=== PATIENT | female | born 1985 | race Caucasian/White ===

== ENCOUNTER 2020-05-05 16:11 | Day surgery (SDC) | payer SELFPAY ==
[2020-05-05] MEDS ORDERED: Sodium Chloride 0.9% 10 ML Syringe FLUSH PRN (16:37)
[2020-05-05] MEDS ORDERED: HYDROmorphone 0.5 MG/0.5 ML Syringe IVPUSH ONE ×2 (16:38→17:52)
[2020-05-05] MEDS ORDERED: Ondansetron 4 MG/2 ML SDV IVPUSH ONE (16:40)
[2020-05-05] MEDS ORDERED: Sodium Chloride 0.9% 1,000 ML IV SCH (16:45)
--- NOTE | 2020-05-05 16:56 | EDM.PDOC ---
ED HPI GENERAL MEDICAL PROBLEM - General Chief Complaint: Abdominal Pain Stated Complaint: UPPER ABDOMINAL PAIN Time Seen by Provider: 05/05/20 16:20 Source of Information: Reports: Patient History Limitations: Reports: No Limitations - History of Present Illness INITIAL COMMENTS - FREE TEXT/NARRATIVE: Patient is a 34-year-old female presents to the emergency department with co mplaints of upper abdominal pain that started early yesterday. She describes it as a crampy, dull ache. She is had no nausea or vomiting. She has tried using [id number] Pepto, Dulcolax, and Beano without relief. She states that initially thought it was just gas, however any of the treatments she has tried is not helping. Last thing she had to eat prior to this was barbecue ribs and cucumbers. She has had an appendectomy in the past but does still have her gallbladder. She has no urinary complaints. Denies any nausea, vomiting, or diarrhea. 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 below) Other Treatments HOUSE DECORATOR: tamar, dulcolax, pepto Upper Abdominal Pain Score (Numeric/FACES): 10 - Related Data Allergies Allergy/AdvReac Type Severity Reaction Status Date / Time No Known Allergies Allergy Verified 05/05/20 16:26 Home Meds: Home Meds oxyCODONE 5 mg PO Q4H PRN #15 tab 05/05/20 [Rx] Past Medical History - Past Health History Medical/Surgical History: Denies Medical/Surgical History - Past Surgical History GI Surgical History: Reports: Appendectomy Social & Family History - Tobacco Use Smoking Status *Q: Current Every Day Smoker Years of Tobacco use: 20 Packs/Tins Daily: 0.5 - Caffeine Use Caffeine Use: Reports: Soda - Recreational Drug Use Recreational Drug Use: No ED ROS GENERAL - Review of Systems Review Of Systems: See Below Constitutional: Reports: Decreased Appetite. Denies: Fever, Chills HEENT: Reports: No Symptoms Respiratory: Reports: No Symptoms Cardiovascular: Reports: No Symptoms Endocrine: Reports: No Symptoms GI/Abdominal: Reports: Abdominal Pain (upper abdomen. Worse in RUQ.). Denies: Nausea, Vomiting : Reports: No Symptoms. Denies: Dysuria, Flank Pain, Frequency Musculoskeletal: Reports: No Symptoms Skin: Reports: No Symptoms Neurological: Reports: No Symptoms Psychiatric: Reports: No Symptoms Hematologic/Lymphatic: Reports: No Symptoms Immunologic: Reports: No Symptoms ED EXAM, GI/ABD - Physical Exam Exam: See Below Exam Limited By: No Limitations General Appearance: Alert, WD/WN, No Apparent Distress Respiratory/Chest: No Respiratory Distress, Lungs Clear, Normal Breath Sounds, No Accessory Muscle Use, Chest Non-Tender Cardiovascular: Normal Peripheral Pulses, Regular Rate, Rhythm, No Edema, No Gallop, No JVD, No Murmur, No Rub GI/Abdominal Exam: Normal Bowel Sounds, Soft, Tender (throughout upper abdomen. Worse in epigastrum and RUQ. Positive [place] sign.). No: Guarding, Rigid, Rebound Neurological: Alert, Oriented, CN II-XII Intact, Normal Cognition, Normal Gait, Normal Reflexes, No Motor/Sensory Deficits Psychiatric: Normal Affect, Normal Mood Skin Exam: Warm, Dry, Intact, Normal Color, No Rash Course - Vital Signs Last Recorded V/S: Last Vital Signs Temp 98.1 F 05/05/20 21:45 Pulse 87 05/05/20 18:16 Resp 18 05/05/20 21:45 BP 106/64 05/05/20 21:45 Pulse Ox 95 05/05/20 21:45 - Orders/Labs/Meds Orders: Active Orders 24 hr Category Date Time Status Admission Status [Patient Status] [ADT] Routine ADT 05/05/20 18:27 Active Communication Order [RC] ROUTINE Care 05/05/20 19:03 Active Cooling Warming Measures [RC] ASDIRECTED Care 05/05/20 19:03 Active Notify Provider [RC] ASDIRECTED Care 05/05/20 19:03 Active Oxygen Therapy [RC] ASDIRECTED Care 05/05/20 19:03 Active Peripheral IV Care [RC] . DIRECTED Care 05/05/20 16:38 Active Pulse Oximetry [RC] ASDIRECTED Care 05/05/20 19:03 Active Ready for Discharge [RC] PER UNIT ROUTINE Care 05/05/20 20:53 Active Vital Signs [RC] Q15M Care 05/05/20 19:03 Active Peripheral IV Insertion Adult [OM.PC] Stat Oth 05/05/20 16:37 Ordered Schedule Procedure [COMM] Stat Oth 05/05/20 18:27 Ordered Labs: Laboratory Tests 05/05/20 05/05/20 05/05/20 Range/Units 16:33 16:33 17:50 WBC 14.73 H (3.98-10.04) K/mm3 RBC 4.92 (3.98-5.22) M/mm3 Hgb 14.4 (11.2-15.7) gm/dl Hct 43.3 (34.1-44.9) % MCV 88.0 (79.4-94.8) fl MCH 29.3 (25.6-32.2) pg MCHC 33.3 (32.2-35.5) g/dl RDW Std Deviation 43.0 (36.4-46.3) fL Plt Count 227 (182-369) K/mm3 MPV 10.7 (9.4-12.3) fl Neut % (Auto) 78.4 H (34.0-71.1) % Lymph % (Auto) 11.1 L (19.3-51.7) % [place] % (Auto) 9.3 (4.7-12.5) % Eos % (Auto) 0.8 (0.7-5.8) Baso % (Auto) 0.2 (0.1-1.2) % Neut # (Auto) 11.55 H (1.56-6.13) K/mm3 Lymph # (Auto) 1.63 (1.18-3.74) K/mm3 [place] # (Auto) 1.37 H (0.24-0.36) K/mm3 Eos # (Auto) 0.12 (0.04-0.36) K/mm3 Baso # (Auto) 0.03 (0.01-0.08) K/mm3 Manual Slide Review Normal smear Sodium 140 (136-145) mEq/L Potassium 3.7 (3.5-5.1) mEq/L Chloride 101 (98-107) mEq/L Carbon Dioxide 27 (21-32) mEq/L Anion Gap 15.7 H (5-15) BUN 13 (7-18) mg/dL Creatinine 0.9 (0.55-1.02) mg/dL Est Cr Clr Drug Dosing 75.34 mL/min Estimated GFR (MDRD) > 60 (>60) mL/min BUN/Creatinine Ratio 14.4 (14-18) Glucose 113 H (74-106) mg/dL Calcium 9.1 (8.5-10.1) mg/dL Total Bilirubin 0.7 (0.2-1.0) mg/dL AST 10 L (15-37) U/L ALT 18 (14-59) U/L Alkaline Phosphatase 94 (46-116) U/L C-Reactive Protein 10.1 H* (<1.0) mg/dL Total Protein 7.5 (6.4-8.2) g/dl Albumin 4.0 (3.4-5.0) g/dl Globulin 3.5 gm/dL Albumin/Globulin Ratio 1.1 (1-2) Lipase 45 L (73-393) U/L Urine Color (Yellow) Urine Appearance (Clear) Urine pH (5.0-8.0) Ur Specific [place] (1.005-1.030) Urine Protein (Negative) Urine Glucose (UA) (Negative) Urine Ketones (Negative) Urine Occult Blood (Negative) Urine Nitrite (Negative) Urine Bilirubin (Negative) Urine Urobilinogen (0.2-1.0) Ur Leukocyte Esterase (Negative) Urine RBC (0-5) /hpf Urine WBC (0-5) /hpf Ur Squamous Epith Cells (0-5) /hpf Urine Bacteria (FEW) /hpf Urine Mucus (FEW) /hpf Urine HCG, Qual Negative (NEGATIVE) COVID-19 ([place]) (NEGATIVE) 05/05/20 05/05/20 Range/Units 17:52 17:55 WBC (3.98-10.04) K/mm3 RBC (3.98-5.22) M/mm3 Hgb (11.2-15.7) gm/dl Hct (34.1-44.9) % MCV (79.4-94.8) fl MCH (25.6-32.2) pg MCHC (32.2-35.5) g/dl RDW Std Deviation (36.4-46.3) fL Plt Count (182-369) K/mm3 MPV (9.4-12.3) fl Neut % (Auto) (34.0-71.1) % Lymph % (Auto) (19.3-51.7) % [place] % (Auto) (4.7-12.5) % Eos % (Auto) (0.7-5.8) Baso % (Auto) (0.1-1.2) % Neut # (Auto) (1.56-6.13) K/mm3 Lymph # (Auto) (1.18-3.74) K/mm3 [place] # (Auto) (0.24-0.36) K/mm3 Eos # (Auto) (0.04-0.36) K/mm3 Baso # (Auto) (0.01-0.08) K/mm3 Manual Slide Review Sodium (136-145) mEq/L Potassium (3.5-5.1) mEq/L Chloride (98-107) mEq/L Carbon Dioxide (21-32) mEq/L Anion Gap (5-15) BUN (7-18) mg/dL Creatinine (0.55-1.02) mg/dL Est Cr Clr Drug Dosing mL/min Estimated GFR (MDRD) (>60) mL/min BUN/Creatinine Ratio (14-18) Glucose (74-106) mg/dL Calcium (8.5-10.1) mg/dL Total Bilirubin (0.2-1.0) mg/dL AST (15-37) U/L ALT (14-59) U/L Alkaline Phosphatase (46-116) U/L C-Reactive Protein (<1.0) mg/dL Total Protein (6.4-8.2) g/dl Albumin (3.4-5.0) g/dl Globulin gm/dL Albumin/Globulin Ratio (1-2) Lipase (73-393) U/L Urine Color Yellow (Yellow) Urine Appearance Slt cloudy H (Clear) Urine pH 6.5 (5.0-8.0) Ur Specific [place] 1.020 (1.005-1.030) Urine Protein Negative (Negative) Urine Glucose (UA) Negative (Negative) Urine Ketones Trace H (Negative) Urine Occult Blood 3+ H (Negative) Urine Nitrite Negative (Negative) Urine Bilirubin Negative (Negative) Urine Urobilinogen 0.2 (0.2-1.0) Ur Leukocyte Esterase Negative (Negative) Urine RBC 5-10 H (0-5) /hpf Urine WBC 0-5 (0-5) /hpf Ur Squamous Epith Cells 10-20 H (0-5) /hpf Urine Bacteria Few (FEW) /hpf Urine Mucus Moderate H (FEW) /hpf Urine HCG, Qual (NEGATIVE) COVID-19 ([place]) Negative (NEGATIVE) Meds: Medications Discontinued Medications Generic Name Dose Route Start Last Admin Trade Name Freq PRN Reason Stop Dose Admin Bupivacaine HCl Confirm 05/05/20 18:31 05/05/20 19:05 Marcaine 0.5% Administered 05/05/20 18:32 20 ml Dose Administration 30 ml .ROUTE .STK-MED ONE Dexamethasone Confirm 05/05/20 18:17 Dexamethasone Administered 05/05/20 18:18 Dose 20 mg .ROUTE .STK-MED ONE Diphenhydramine HCl 25 mg 05/05/20 19:03 Benadryl IVPUSH Q6H PRN pruritis Ephedrine Sulfate 5 mg 05/05/20 19:03 Ephedrine Sulfate IVPUSH ASDIRECTED PRN Hypotension Fentanyl Confirm 05/05/20 18:17 Sublimaze Administered 05/05/20 18:18 Dose 250 mcg .ROUTE .STK-MED ONE Fentanyl 50 mcg 05/05/20 19:03 Sublimaze IVPUSH Q5M PRN Pain Glycopyrrolate Confirm 05/05/20 19:10 Administered 05/05/20 19:11 Dose 1 mg .ROUTE .STK-MED ONE Hydromorphone HCl 0.5 mg 05/05/20 16:38 05/05/20 16:57 Dilaudid IVPUSH 05/05/20 16:39 0.5 mg ONETIME ONE Administration Hydromorphone HCl 0.5 mg 05/05/20 17:52 05/05/20 17:58 Dilaudid IVPUSH 05/05/20 17:53 0.5 mg ONETIME ONE Administration Hydromorphone HCl Confirm 05/05/20 18:17 Dilaudid Administered 05/05/20 18:18 Dose 0.5 mg .ROUTE .STK-MED ONE Hydromorphone HCl 0.5 mg 05/05/20 19:04 05/05/20 21:29 Dilaudid IVPUSH 0.5 mg ONETIME PRN Administration Pain Sodium Chloride 1,000 mls @ 999 mls/hr 05/05/20 16:45 05/05/20 17:01 Normal Saline IV 999 mls/hr ASDIRECTED GABRIELA Administration Piperacillin Sod/Tazobactam 100 mls @ 200 mls/hr 05/05/20 17:46 05/05/20 17:59 Sod 4.5 gm/ Sodium Chloride IV 05/05/20 18:15 200 mls/hr ONETIME ONE Administration Lactated Ringer's 1,000 mls @ 100 mls/hr 05/05/20 18:00 05/05/20 18:03 Ringers, Lactated IV 100 mls/hr ASDIRECTED GABRIELA Administration Lidocaine HCl Confirm 05/05/20 18:17 Xylocaine-Mpf 1% Administered 05/05/20 18:18 Dose 4 mls @ as directed .ROUTE .STK-MED ONE Lactated Ringer's Confirm 05/05/20 18:17 Ringers, Lactated Administered 05/05/20 18:18 Dose 1,000 mls @ as directed .ROUTE .STK-MED ONE Phenylephrine HCl 1 mg/ Sodium 10.1 mls @ 1 mls/sec 05/05/20 19:15 Chloride IV TITRATE COUNT INCLUDES THE [facility] Protocol Ketorolac Tromethamine Confirm 05/05/20 18:17 Toradol Administered 05/05/20 18:18 Dose 30 mg .ROUTE .STK-MED ONE Labetalol HCl Confirm 05/05/20 19:18 Normodyne Administered 05/05/20 19:19 Dose 100 mg .ROUTE .STK-MED ONE Midazolam HCl Confirm 05/05/20 18:17 Versed 1 Mg/Ml Administered 05/05/20 18:18 Dose 2 mg .ROUTE .STK-MED ONE Neostigmine Methylsulfate Confirm 05/05/20 19:10 Neostigmine Methylsulfate Administered 05/05/20 19:11 Dose 5 mg .ROUTE .STK-MED ONE Ondansetron HCl 4 mg 05/05/20 16:40 05/05/20 16:57 Zofran IVPUSH 05/05/20 16:41 4 mg ONETIME ONE Administration Ondansetron HCl Confirm 05/05/20 18:17 Zofran Administered 05/05/20 18:18 Dose 4 mg .ROUTE .STK-MED ONE Propofol Confirm 05/05/20 18:17 Diprivan 20 Ml Administered 05/05/20 18:18 Dose 200 mg .ROUTE .STK-MED ONE Rocuronium [place] Confirm 05/05/20 18:17 Zemuron Administered 05/05/20 18:18 Dose 50 mg .ROUTE .STK-MED ONE Sodium Chloride 10 ml 05/05/20 16:37 05/05/20 16:55 Saline Flush FLUSH 10 ml ASDIRECTED PRN Administration Keep Vein Open - Re-Assessments/Exams Free Text/Narrative Re-Assessment/Exam: 05/05/20 17:53 Hematology was significant for WBC elevated at 14.73, anion gap 15.7, CRP 10.0. Ultrasound of the right upper quadrant shows 2 gallstones. Gallbladder wall is mildly thickened with mild pericholecystic fluid. Findings suggest the possibility of acute cholecystitis. No biliary duct dilatation is seen. Called and spoke with the general surgeon, Dr. Hurd. He had initially plan to admit her for the night with antibiotics and take her gallbladder out tomorrow, however he call back and stated that he will take her to surgery now. I have ordered Zosyn as well as LR at 100 mils per hour. I will also give the patient another dose of Dilaudid 0.5 mg for pain. Discussed this with patient and she is in agreement with this plan. OR crew has been called in. Preprocedure COVID screening has been ordered. Departure - Departure Time of Disposition: 17:53 Disposition: DC/Tfer to [facility] Condition: Good Clinical Impression: Cholecystitis - Discharge Information Sepsis Event Note (ED) - Evaluation Sepsis Screening Result: No Definite Risk - Focused Exam Vital Signs: Vital Signs Temp Pulse Resp BP Pulse Ox 05/05/20 21:45 98.1 F 18 106/64 95 05/05/20 21:32 97.9 F 12 109/63 97 05/05/20 21:15 99.0 F 13 110/64 99 05/05/20 21:02 100.0 F 13 107/61 100 05/05/20 20:54 13 95 05/05/20 20:47 99.3 F 15 112/50 L 95 05/05/20 18:16 98.4 F 87 16 117/76 100 05/05/20 16:22 98.7 F 90 16 134/92 H 98 - My Orders Last 24 Hours: My Active Orders 05/05/20 16:37 Peripheral IV Insertion Adult [OM.PC] Stat 05/05/20 16:38 Peripheral IV Care [RC] . DIRECTED - Assessment/Plan Last 24 Hours: My Active Orders 05/05/20 16:37 Peripheral IV Insertion Adult [OM.PC] Stat 05/05/20 16:38 Peripheral IV Care [RC] . DIRECTED
--- NOTE | 2020-05-05 17:23 | US ---
Limited abdominal ultrasound: Multiple real-time images were obtained of the upper right abdomen. Comparison: No prior abdominal imaging is available. Findings: Liver shows no focal abnormality. Gallbladder shows 2 gallstones. One gallstone measures 1.8 cm and second gallstone measures 1.7 cm. These appear within the gallbladder neck. Sludge is also noted within the gallbladder. Gallbladder wall appears slightly prominent with mild irene-cholecystic fluid appearing to be present. No biliary duct dilatation is seen. Right kidney shows no hydronephrosis or mass. Right kidney has a length of 11.0 cm. Pancreas shows no discrete abnormality. Inferior vena cava is patent. Main portal vein shows normal hepatopedal flow. Impression: 1. 2 gallstones. Gallbladder wall is mildly thickened with mild pericholecystic fluid. Findings suggest the possibility of acute cholecystitis. Please correlate that this matches patient's clinical symptoms. No biliary duct dilatation is seen. 2. No additional abnormality is identified on right upper quadrant abdominal ultrasound. Diagnostic code #5 This report was dictated in MDT
[2020-05-05] MEDS ORDERED: Piperacillin/Tazobactam 4.5 GM in Sodium Chloride 0.9% 100 ML IV ONE (17:46)
[2020-05-05] MEDS ORDERED: Lactated Ringers 1,000 ML IV SCH (18:00)
--- NOTE | 2020-05-05 18:01 | PCM.PREANE ---
Preanesthetic Assessment - Anesthesia/Transfusion/Family Hx Anesthesia History: Prior Anesthesia Without Reaction Family History of Anesthesia Reaction: No Transfusion History: No Prior Transfusion(s) Intubation History: Unknown - Review of Systems General: No Symptoms, Fatigue Pulmonary: No Symptoms (smoker: 1/2 ppd times 20 years. ETOH: rarely ) Cardiovascular: No Symptoms Gastrointestinal: Decreased Appetite, Diarrhea (recently took laxatives) Neurological: No Symptoms Other: Reports: Easy Bruising - Physical Assessment NPO Status Date: 05/05/20 NPO Status Time: 18:00 (water) Vital Signs: Last Vital Signs Temp 37.1 C 05/05/20 16:22 Pulse 90 05/05/20 16:22 Resp 16 05/05/20 16:22 BP 134/92 H 05/05/20 16: Pulse Ox 98 05/05/20 16:22 Height: 1.63 m Weight: 71.214 kg ASA Class: 2E Mental Status: Alert & Oriented x3 Airway Class: Mallampati = 2 Dentition: Reports: Dentures (upper), Caries Thyro-Mental Finger Breadths: 3 Mouth Opening Finger Breadths: 3 ROM/Head Extension: Full Lungs: Clear to Auscultation, Normal Respiratory Effort Cardiovascular: Regular Rate, Regular Rhythm, No Murmurs - Lab Values: Laboratory Last Values WBC 14.73 K/mm3 (3.98-10.04) H 05/05/20 16:33 RBC 4.92 M/mm3 (3.98-5.22) 05/05/20 16:33 Hgb 14.4 gm/dl (11.2-15.7) 05/05/20 16:33 Hct 43.3 % (34.1-44.9) 05/05/20 16:33 MCV 88.0 fl (79.4-94.8) 05/05/20 16:33 MCH 29.3 pg (25.6-32.2) 05/05/20 16:33 MCHC 33.3 g/dl (32.2-35.5) 05/05/20 16:33 RDW Std Deviation 43.0 fL (36.4-46.3) 05/05/20 16:33 Plt Count 227 K/mm3 (182-369) 05/05/20 16:33 MPV 10.7 fl (9.4-12.3) 05/05/20 16:33 Neut % (Auto) 78.4 % (34.0-71.1) H 05/05/20 16:33 Lymph % (Auto) 11.1 % (19.3-51.7) L 05/05/20 16:33 [place] % (Auto) 9.3 % (4.7-12.5) 05/05/20 16:33 Eos % (Auto) 0.8 (0.7-5.8) 05/05/20 16:33 Baso % (Auto) 0.2 % (0.1-1.2) 05/05/20 16:33 Neut # (Auto) 11.55 K/mm3 (1.56-6.13) H 05/05/20 16:33 Lymph # (Auto) 1.63 K/mm3 (1.18-3.74) 05/05/20 16:33 [place] # (Auto) 1.37 K/mm3 (0.24-0.36) H 05/05/20 16:33 Eos # (Auto) 0.12 K/mm3 (0.04-0.36) 05/05/20 16:33 Baso # (Auto) 0.03 K/mm3 (0.01-0.08) 05/05/20 16:33 Manual Slide Review Normal smear 05/05/20 16:33 Sodium 140 mEq/L (136-145) 05/05/20 16:33 Potassium 3.7 mEq/L (3.5-5.1) 05/05/20 16:33 Chloride 101 mEq/L (98-107) 05/05/20 16:33 Carbon Dioxide 27 mEq/L (21-32) 05/05/20 16:33 Anion Gap 15.7 (5-15) H 05/05/20 16:33 BUN 13 mg/dL (7-18) 05/05/20 16:33 Creatinine 0.9 mg/dL (0.55-1.02) 05/05/20 16:33 Est Cr Clr Drug Dosing 75.34 mL/min 05/05/20 16:33 Estimated GFR (MDRD) > 60 mL/min (>60) 05/05/20 16:33 BUN/Creatinine Ratio 14.4 (14-18) 05/05/20 16:33 Glucose 113 mg/dL (74-106) H 05/05/20 16:33 Calcium 9.1 mg/dL (8.5-10.1) 05/05/20 16:33 Total Bilirubin 0.7 mg/dL (0.2-1.0) 05/05/20 16:33 AST 10 U/L (15-37) L 05/05/20 16:33 ALT 18 U/L (14-59) 05/05/20 16:33 Alkaline Phosphatase 94 U/L (46-116) 05/05/20 16:33 C-Reactive Protein 10.1 mg/dL (<1.0) H* 05/05/20 16:33 Total Protein 7.5 g/dl (6.4-8.2) 05/05/20 16:33 Albumin 4.0 g/dl (3.4-5.0) 05/05/20 16:33 Globulin 3.5 gm/dL 05/05/20 16:33 Albumin/Globulin Ratio 1.1 (1-2) 05/05/20 16:33 Lipase 45 U/L (73-393) L 05/05/20 16:33 Above labs reviewed and noted and within acceptable ranges to proceed with scheduled procedure. - Allergies Allergies/Adverse Reactions: Allergies Allergy/AdvReac Type Severity Reaction Status Date / Time No Known Allergies Allergy Verified 05/05/20 16:26 - Anesthesia Plan Pre-Op Medication Ordered: None - Acknowledgements Anesthesia Type Planned: General Anesthesia Pt an Appropriate Candidate for the Planned Anesthesia: Yes Alternatives and Risks of Anesthesia Discussed w Pt/Guardian: Yes Pt/Guardian Understands and Agrees with Anesthesia Plan: Yes PreAnesthesia Questionnaire - Past Health History Medical/Surgical History: Denies Medical/Surgical History - Past Surgical History GI Surgical History: Reports: Appendectomy - SUBSTANCE USE Smoking Status *Q: Current Every Day Smoker Tobacco Use Within Last Twelve Months: Cigarettes Recreational Drug Use History: No - HOME MEDS Home Medications: Home Meds . [No Known Home Meds] 05/05/20 [History] - CURRENT (IN HOUSE) MEDS Current Meds: Current Medications Sodium Chloride (Normal Saline) 1,000 mls @ 999 mls/hr IV ASDIRECTED GABRIELA Last Admin: 05/05/20 17:01 Dose: 999 mls/hr Documented by: Piperacillin Sod/Tazobactam (Sod 4.5 gm/ Sodium Chloride) 100 mls @ 200 mls/hr IV ONETIME ONE Stop: 05/05/20 18:15 Lactated Ringer's (Ringers, Lactated) 1,000 mls @ 100 mls/hr IV ASDIRECTED GABRIELA Sodium Chloride (Saline Flush) 10 ml FLUSH ASDIRECTED PRN PRN Reason: Keep Vein Open Last Admin: 05/05/20 16:55 Dose: 10 ml Documented by: Discontinued Medications Hydromorphone HCl (Dilaudid) 0.5 mg IVPUSH ONETIME ONE Stop: 05/05/20 16:39 Last Admin: 05/05/20 16:57 Dose: 0.5 mg Documented by: Hydromorphone HCl (Dilaudid) 0.5 mg IVPUSH ONETIME ONE Stop: 05/05/20 17:53 Last Admin: 05/05/20 17:58 Dose: 0.5 mg Documented by: Ondansetron HCl (Zofran) 4 mg IVPUSH ONETIME ONE Stop: 05/05/20 16:41 Last Admin: 05/05/20 16:57 Dose: 4 mg Documented by:
[2020-05-05] MEDS ORDERED: Lidocaine 1% 4 ML ONE (18:17)
[2020-05-05] MEDS ORDERED: Rocuronium 50 MG/5 ML Vial ONE (18:17)
[2020-05-05] MEDS ORDERED: Succinylcholine/Sod PF 100 MG/5 ML SYRINGE IV ONE (18:17)
[2020-05-05] MEDS ORDERED: HYDROmorphone 0.5 MG/0.5 ML Syringe ONE (18:17)
[2020-05-05] MEDS ORDERED: Propofol 200 MG/20 ML SDV ONE (18:17)
[2020-05-05] MEDS ORDERED: Ketorolac 30 MG/ML SDV ONE (18:17)
[2020-05-05] MEDS ORDERED: Lactated Ringers 1,000 ML ONE (18:17)
[2020-05-05] MEDS ORDERED: Midazolam 1 MG/ML 2 ML SDV ONE (18:17)
[2020-05-05] MEDS ORDERED: Ondansetron 4 MG/2 ML SDV ONE (18:17)
[2020-05-05] MEDS ORDERED: fentaNYL 250 MCG/5 ML SDV ONE (18:17)
[2020-05-05] MEDS ORDERED: Dexamethasone 4 MG/ML 5 ML MDV ONE (18:17)
[2020-05-05] MEDS ORDERED: Bupivacaine 0.5% 30 ML SDV ONE (18:31)
[2020-05-05] MEDS ORDERED: fentaNYL 100 MCG/2 ML SDV IVPUSH PRN (19:03)
[2020-05-05] MEDS ORDERED: diphenhydrAMINE 50 MG/ML SDV IVPUSH PRN (19:03)
[2020-05-05] MEDS ORDERED: ePHEDrine 50 MG/ML SDV IVPUSH PRN (19:03)
[2020-05-05] MEDS ORDERED: HYDROmorphone 0.5 MG/0.5 ML Syringe IVPUSH PRN (19:04)
[2020-05-05] MEDS ORDERED: Phenylephrine 1 MG in Sodium Chloride 0.9% 10 ML IV SCH (19:15)
[2020-05-05] MEDS ORDERED: Labetalol 100 MG/20 ML MDV ONE (19:18)
--- NOTE | 2020-05-05 20:47 | PCM.PRNOTE ---
- Free Text/Narrative Note: Operative Report Operation: laparoscopic cholecystectomy Date: 05/05/2020 Attending Surgeon: Toro Hurd MD Indication for Surgery: acute calculous cholecystitis Preoperative antibiotics: 4 g zosyn IV VTE prophylaxis: SCDs Estimated Blood Loss: 25 cc Findings: severely inflamed gallbladder. Critical view of safety obtained. Detailed Report: The patient underwent general endotracheal anesthesia after being placed supine on the operating table and initial timeout. The abdomen was prepped and draped in sterile fashion. A pre-incision timeout was performed confirming the patients identity and the operation to be performed. A Veress needle was inserted into the abdominal cavity below the left costal margin along the mid- clavicular line. The abdomen was insufflated with CO2 to 15 mm Hg. Gas was aspirated below the umbilicus with a syringe in order to ensure safe placement of a 5 mm bladed laparoscopic port. The 5mm 30 degree laparoscope was then inserted and viscera inspected. The gallbladder appeared severely inflamed and edematous. Two additional 5 mm ports were placed along the right subcostal region under direct vision with the laparoscope, and a 12 mm port was placed at the subxiphoid region. A laparoscopic hollow needle was used to decompress the gallbladder at the fundus and about 50 cc of thin green fluid was aspirated, allowing for the gallbladder to be grasped. The gallbladder was grasped at the fundus with a locking grasper and retracted anteriorly and superiorly, exposing the infundibulum. This was grasped with the surgeons left hand grasper and retracted laterally. The hook electrode was used to open the overlying peritoneum, and this plane of dissection was developed along the edges of the gallbladder at its interface with the liver bed. A combination of hook electrode, blunt dissection with the suction fundraising manager and the [place] grasper were used to carefully expose and skeletonize the cystic duct and artery. A critical view of safety was obtained. The metal clip cash reconciliation specialist was used at first, but I was not satisfied that these clips went completely across the cystic duct. Thus, a hemolock clip was also placed on the stay side. Metal clips were used on the cystic artery. These clips proved not to be secure, as the one on the cystic duct stump with the specimen came off, and there was some minor bleeding from the site of cystic artery transection. This was controlled with direct pressure and use of surgicel and flowseal. The hook was then used to dissect the gallbladder free from its attachment to the liver. This was difficult due to significant inflammation, and there was some minor hemorrhage from the liver bed during dissection. The specimen was then placed in an Endocatch bag and removed through the subxiphoid port. The dissection field was thoroughly irrigated and suctioned, and fluid from the right paracolic gutter and pelvis was suctioned as well. The liver bed was inspected and appeared hemostatic. The larger subxiphoid port was closed at the level of the fascia with vicryl suture using the PMI laparoscopic suture passer. Pneumoperitoneum was then released. All skin incisions were then closed with placement of subcuticular vicryl suture and dressed with dermabond. A total of 20 cc 0.5% marcaine with epinephrine was used for local anesthesia at the incision sites. The patient tolerated the operation well, was extubated in the operating room and transferred to the PACU for routine post-anesthesia care.
--- NOTE | 2020-05-05 20:51 | PCM.HP.2 ---
H&P History of Present Illness - General Date of Service: 05/05/20 Admit Problem/Dx: Admission Diagnosis/Problem Admission Diagnosis/Problem Cholecystitis Source of Information: Patient History Limitations: Reports: No Limitations - History of Present Illness Other HPI/Comments: Mrs. Kathleen is a 34 yo woman presenting with 48 hrs of worsening epigastric, right upper quadrant pain, bloating, nausea and vomiting. Labs in the ER show a white count of over 14,000 and ultrasound imaging shows findings consistent with acute calculous cholecystitis, including stones, wall thickening, and pericholecystic fluid. Bilirubin is normal. She has no other significant medical problems. Upper Abdominal Pain Score (Numeric/FACES): 5 - Related Data Allergies/Adverse Reactions: Allergies Allergy/AdvReac Type Severity Reaction Status Date / Time No Known Allergies Allergy Verified 05/05/20 16:26 Home Medications: Home Meds . [No Known Home Meds] 05/05/20 [History] Past Medical History - Past Health History Medical/Surgical History: Denies Medical/Surgical History - Past Surgical History GI Surgical History: Reports: Appendectomy Social & Family History - Tobacco Use Smoking Status *Q: Current Every Day Smoker Years of Tobacco use: 20 Packs/Tins Daily: 0.5 - Caffeine Use Caffeine Use: Reports: Soda - Recreational Drug Use Recreational Drug Use: No H&P Review of Systems - Review of Systems: Review Of Systems: See Below General: Reports: Malaise HEENT: Reports: No Symptoms Pulmonary: Reports: No Symptoms Cardiovascular: Reports: No Symptoms Gastrointestinal: Reports: Abdominal Pain Genitourinary: Reports: No Symptoms Musculoskeletal: Reports: No Symptoms Skin: Reports: No Symptoms Psychiatric: Reports: No Symptoms Neurological: Reports: No Symptoms Immunologic: Reports: No Symptoms Exam - Exam Exam: See Below - Vital Signs Vital Signs: Last Vital Signs Temp 36.9 C 05/05/20 18:16 Pulse 87 05/05/20 18:16 Resp 16 05/05/20 18:16 BP 117/76 05/05/20 18:16 Pulse Ox 100 05/05/20 18:16 Weight: 71.214 kg - Exam General: Alert, Oriented, Cooperative HEENT: Conjunctiva Clear Neck: Supple, Trachea Midline Lungs: Clear to Auscultation, Normal Respiratory Effort Cardiovascular: Regular Rate, Regular Rhythm GI/Abdominal Exam: Soft Skin: Warm, Dry, Intact Neuro Extensive - Mental Status: Alert Psychiatric: Normal Affect, Normal Mood - Patient Data Lab Results Last 24 hrs: Laboratory Results - last 24 hr 05/05/20 05/05/20 05/05/20 Range/Units 16:33 16:33 17:50 WBC 14.73 H (3.98-10.04) K/mm3 RBC 4.92 (3.98-5.22) M/mm3 Hgb 14.4 (11.2-15.7) gm/dl Hct 43.3 (34.1-44.9) % MCV 88.0 (79.4-94.8) fl MCH 29.3 (25.6-32.2) pg MCHC 33.3 (32.2-35.5) g/dl RDW Std Deviation 43.0 (36.4-46.3) fL Plt Count 227 (182-369) K/mm3 MPV 10.7 (9.4-12.3) fl Neut % (Auto) 78.4 H (34.0-71.1) % Lymph % (Auto) 11.1 L (19.3-51.7) % [place] % (Auto) 9.3 (4.7-12.5) % Eos % (Auto) 0.8 (0.7-5.8) Baso % (Auto) 0.2 (0.1-1.2) % Neut # (Auto) 11.55 H (1.56-6.13) K/mm3 Lymph # (Auto) 1.63 (1.18-3.74) K/mm3 [place] # (Auto) 1.37 H (0.24-0.36) K/mm3 Eos # (Auto) 0.12 (0.04-0.36) K/mm3 Baso # (Auto) 0.03 (0.01-0.08) K/mm3 Manual Slide Review Normal smear Sodium 140 (136-145) mEq/L Potassium 3.7 (3.5-5.1) mEq/L Chloride 101 (98-107) mEq/L Carbon Dioxide 27 (21-32) mEq/L Anion Gap 15.7 H (5-15) BUN 13 (7-18) mg/dL Creatinine 0.9 (0.55-1.02) mg/dL Est Cr Clr Drug Dosing 75.34 mL/min Estimated GFR (MDRD) > 60 (>60) mL/min BUN/Creatinine Ratio 14.4 (14-18) Glucose 113 H (74-106) mg/dL Calcium 9.1 (8.5-10.1) mg/dL Total Bilirubin 0.7 (0.2-1.0) mg/dL AST 10 L (15-37) U/L ALT 18 (14-59) U/L Alkaline Phosphatase 94 (46-116) U/L C-Reactive Protein 10.1 H* (<1.0) mg/dL Total Protein 7.5 (6.4-8.2) g/dl Albumin 4.0 (3.4-5.0) g/dl Globulin 3.5 gm/dL Albumin/Globulin Ratio 1.1 (1-2) Lipase 45 L (73-393) U/L Urine Color (Yellow) Urine Appearance (Clear) Urine pH (5.0-8.0) Ur Specific [place] (1.005-1.030) Urine Protein (Negative) Urine Glucose (UA) (Negative) Urine Ketones (Negative) Urine Occult Blood (Negative) Urine Nitrite (Negative) Urine Bilirubin (Negative) Urine Urobilinogen (0.2-1.0) Ur Leukocyte Esterase (Negative) Urine RBC (0-5) /hpf Urine WBC (0-5) /hpf Ur Squamous Epith Cells (0-5) /hpf Urine Bacteria (FEW) /hpf Urine Mucus (FEW) /hpf Urine HCG, Qual Negative (NEGATIVE) COVID-19 ([place]) (NEGATIVE) 05/05/20 05/05/20 Range/Units 17:52 17:55 WBC (3.98-10.04) K/mm3 RBC (3.98-5.22) M/mm3 Hgb (11.2-15.7) gm/dl Hct (34.1-44.9) % MCV (79.4-94.8) fl MCH (25.6-32.2) pg MCHC (32.2-35.5) g/dl RDW Std Deviation (36.4-46.3) fL Plt Count (182-369) K/mm3 MPV (9.4-12.3) fl Neut % (Auto) (34.0-71.1) % Lymph % (Auto) (19.3-51.7) % [place] % (Auto) (4.7-12.5) % Eos % (Auto) (0.7-5.8) Baso % (Auto) (0.1-1.2) % Neut # (Auto) (1.56-6.13) K/mm3 Lymph # (Auto) (1.18-3.74) K/mm3 [place] # (Auto) (0.24-0.36) K/mm3 Eos # (Auto) (0.04-0.36) K/mm3 Baso # (Auto) (0.01-0.08) K/mm3 Manual Slide Review Sodium (136-145) mEq/L Potassium (3.5-5.1) mEq/L Chloride (98-107) mEq/L Carbon Dioxide (21-32) mEq/L Anion Gap (5-15) BUN (7-18) mg/dL Creatinine (0.55-1.02) mg/dL Est Cr Clr Drug Dosing mL/min Estimated GFR (MDRD) (>60) mL/min BUN/Creatinine Ratio (14-18) Glucose (74-106) mg/dL Calcium (8.5-10.1) mg/dL Total Bilirubin (0.2-1.0) mg/dL AST (15-37) U/L ALT (14-59) U/L Alkaline Phosphatase (46-116) U/L C-Reactive Protein (<1.0) mg/dL Total Protein (6.4-8.2) g/dl Albumin (3.4-5.0) g/dl Globulin gm/dL Albumin/Globulin Ratio (1-2) Lipase (73-393) U/L Urine Color Yellow (Yellow) Urine Appearance Slt cloudy H (Clear) Urine pH 6.5 (5.0-8.0) Ur Specific [place] 1.020 (1.005-1.030) Urine Protein Negative (Negative) Urine Glucose (UA) Negative (Negative) Urine Ketones Trace H (Negative) Urine Occult Blood 3+ H (Negative) Urine Nitrite Negative (Negative) Urine Bilirubin Negative (Negative) Urine Urobilinogen 0.2 (0.2-1.0) Ur Leukocyte Esterase Negative (Negative) Urine RBC 5-10 H (0-5) /hpf Urine WBC 0-5 (0-5) /hpf Ur Squamous Epith Cells 10-20 H (0-5) /hpf Urine Bacteria Few (FEW) /hpf Urine Mucus Moderate H (FEW) /hpf Urine HCG, Qual (NEGATIVE) COVID-19 ([place]) Negative (NEGATIVE) Result Diagrams: 05/05/20 16:33 05/05/20 16:33 Sepsis Event Note - Evaluation Sepsis Screening Result: No Definite Risk - Focused Exam Vital Signs: Vital Signs Temp Pulse Resp BP Pulse Ox 05/05/20 18:16 36.9 C 87 16 117/76 100 05/05/20 16:22 37.1 C 90 16 134/92 H 98 Date Exam was Performed: 05/05/20 Time Exam was Performed: 20:48 Problem List Initiated/Reviewed/Updated: Yes Orders Last 24hrs: Active Orders 24 hr Category Date Time Status Admission Status [Patient Status] [ADT] Routine ADT 05/05/20 18:27 Active Communication Order [RC] ROUTINE Care 05/05/20 19:03 Active Cooling Warming Measures [RC] ASDIRECTED Care 05/05/20 19:03 Active Notify Provider [RC] ASDIRECTED Care 05/05/20 19:03 Active Oxygen Therapy [RC] ASDIRECTED Care 05/05/20 19:03 Active Peripheral IV Care [RC] . DIRECTED Care 05/05/20 16:38 Active Pulse Oximetry [RC] ASDIRECTED Care 05/05/20 19:03 Active Vital Signs [RC] Q15M Care 05/05/20 19:03 Active HYDROmorphone [Dilaudid] Med 05/05/20 19:04 Active 0.5 mg IVPUSH ONETIME PRN Lactated Ringers [Ringers, Lactated] 1,000 ml Med 05/05/20 18:00 Active IV ASDIRECTED Phenylephrine [Giovani-Synephrine] 1 mg Med 05/05/20 19:15 Active Sodium Chloride 0.9% [Normal Saline] 10 ml IV TITRATE Sodium Chloride 0.9% [Normal Saline] 1,000 ml Med 05/05/20 16:45 Active IV ASDIRECTED Sodium Chloride 0.9% [Saline Flush] Med 05/05/20 16:37 Active 10 ml FLUSH ASDIRECTED PRN diphenhydrAMINE [Benadryl] Med 05/05/20 19:03 Active 25 mg IVPUSH Q6H PRN ePHEDrine [ePHEDrine sulfate] Med 05/05/20 19:03 Active 5 mg IVPUSH ASDIRECTED PRN fentaNYL [Sublimaze] Med 05/05/20 19:03 Active 50 mcg IVPUSH Q5M PRN Peripheral IV Insertion Adult [OM.PC] Stat Ot 05/05/20 16:37 Ordered Schedule Procedure [COMM] Stat Ot 05/05/20 18:27 Ordered Medication Orders Diphenhydramine HCl (Benadryl) 25 mg IVPUSH Q6H PRN PRN Reason: pruritis Ephedrine Sulfate (Ephedrine Sulfate) 5 mg IVPUSH ASDIRECTED PRN PRN Reason: Hypotension Fentanyl (Sublimaze) 50 mcg IVPUSH Q5M PRN PRN Reason: Pain Hydromorphone HCl (Dilaudid) 0.5 mg IVPUSH ONETIME PRN PRN Reason: Pain Sodium Chloride (Normal Saline) 1,000 mls @ 999 mls/hr IV ASDIRECTED [facility] Last Admin: 05/05/20 17:01 Dose: 999 mls/hr Documented by: GENET Lactated Ringer's (Ringers, Lactated) 1,000 mls @ 100 mls/hr IV ASDIRECTED [facility] Last Admin: 05/05/20 18:03 Dose: 100 mls/hr Documented by: GENET Phenylephrine HCl 1 mg/ Sodium (Chloride) 10.1 mls @ 1 mls/sec IV TITRATE [facility]; Protocol Sodium Chloride (Saline Flush) 10 ml FLUSH ASDIRECTED PRN PRN Reason: Keep Vein Open Last Admin: 05/05/20 16:55 Dose: 10 ml Documented by: GENET Assessment/Plan Comment:: Acute calculous cholecystitis. Plan for laparoscopic cholecystectomy this evening, with anticipated discharge to home this evening vs tomorrow morning. - Mortality Measure Prognosis:: Good
--- NOTE | 2020-05-05 20:54 | PCM.POSTAN ---
POST ANESTHESIA ASSESSMENT - MENTAL STATUS Mental Status: Alert - VITAL SIGNS Vital Signs: Last Vital Signs Temp 99.3 05/05/202046 Pulse 68 05/05/202046 Resp 15 05/05/202046 BP 112/50 05/05/202046 Pulse Ox 95 05/05/202046 - RESPIRATORY Respiratory Status: Respiratory Rate WNL, Airway Patent, O2 Saturation Stable - CARDIOVASCULAR CV Status: Pulse Rate WNL, Blood Pressure Stable - GASTROINTESTINAL GI Status: No Symptoms - POST OP HYDRATION Hydration Status: Adequate & Stable
--- NOTE | 2020-05-05 21:28 | PCM48HPAN ---
Post Anesthesia Note - EVALUATION WITHIN 48HRS OF ANESTHETIC Vital Signs in Normal Range: Yes Patient Participated in Evaluation: Yes Respiratory Function Stable: Yes Airway Patent: Yes Cardiovascular Function Stable: Yes Hydration Status Stable: Yes Pain Control Satisfactory: Yes Nausea and Vomiting Control Satisfactory: Yes Mental Status Recovered: Yes Vital Signs: Last Vital Signs Temp 37.2 C 05/05/20 21:15 Pulse 87 05/05/20 18:16 Resp 13 05/05/20 21:15 BP 110/64 05/05/20 21:15 Pulse Ox 99 05/05/20 21:15
== END 2020-05-05 21:17 | disposition home or self-care (01) ==
LOC: JD.ED 16:11 → JD.SDS 18:27
PROVIDERS: ATTEND Surgery
DX: K80.12 Calculus of gallbladder with acute and chronic cholecystitis without obstruction (principal); F17.210 Nicotine dependence, cigarettes, uncomplicated; Z11.59 Encounter for screening for other viral diseases; Z90.49 Acquired absence of other specified parts of digestive tract
CPT/HCPCS: 36415; 47562; 76705; 80053; 81001; 81025; 83690; 85025; 86140; 87635; 96365; 96375; 96376; 99285; J1100; J1170; J2001; J2250; J2405; J2543; J2704; J2710; J3010; J3490; J7030; J7050; J7120; 00790; J0330; J1885; U0002

== ENCOUNTER 2022-01-21 07:11 | Emergency (ER) | payer MEDICAID | END 2022-01-21 07:51 | disposition home or self-care (01) | LOC: JD.ED 07:11 | DX: T19.2XXA Foreign body in vulva and vagina, initial encounter (principal); N84.1 Polyp of cervix uteri; Z90.49 Acquired absence of other specified parts of digestive tract | CPT/HCPCS: 99283 ==

== ENCOUNTER 2022-04-04 19:24 | Emergency (ER) | payer MEDICAID ==
[2022-04-04] MEDS ORDERED: Acetaminophen 325 MG Tab PO ONE (21:24)
[2022-04-04] MEDS ORDERED: tiZANidine 4 MG Tab PO STA (21:24)
[2022-04-04] MEDS ORDERED: Ketorolac 30 MG/ML SDV IM ONE (21:24)
== END 2022-04-04 21:00 | disposition home or self-care (01) ==
LOC: JD.ED 19:24
DX: M54.16 Radiculopathy, lumbar region (principal); F17.210 Nicotine dependence, cigarettes, uncomplicated; Z90.49 Acquired absence of other specified parts of digestive tract; Z79.899 Other long term (current) drug therapy
CPT/HCPCS: 96372; 99283; A9270; J1885; 99282

== ENCOUNTER 2025-03-16 13:26 | Emergency (ER) | payer SELFPAY ==
[2025-03-16] MEDS: Ketorolac 30 MG/ML SDV IM ONE (14:40)
[2025-03-16] MEDS: Acetaminophen/oxyCODONE 325-5 MG Tab PO ONE (14:42)
== END 2025-03-16 16:10 | disposition home or self-care (01) ==
LOC: JD.ED 13:26
DX: S43.491A Other sprain of right shoulder joint, initial encounter (principal); M54.2 Cervicalgia; Z90.49 Acquired absence of other specified parts of digestive tract; Z79.899 Other long term (current) drug therapy; W18.30XA Fall on same level, unspecified, initial encounter; Y92.019 Unspecified place in single-family (private) house as the place of occurrence of the external cause
CPT/HCPCS: 72125; 72125-26; 73030-26-RT; 73030-RT; 96372; 99284; A9270-GY; J1885

== ENCOUNTER 2025-04-15 06:10 | Emergency (ER) | payer SELFPAY ==
[2025-04-15] MEDS: valACYclovir 1,000 MG Tab PO ONE (06:53)
== END 2025-04-15 07:00 | disposition home or self-care (01) ==
LOC: JD.ED 06:10
DX: G51.0 Bell's palsy (principal); Z90.49 Acquired absence of other specified parts of digestive tract
CPT/HCPCS: 99284; A9270; J7512